=== PATIENT | male | born 1940 | race Caucasian/White ===

== ENCOUNTER 2018-06-27 06:49 | Inpatient (IN) | payer MEDICARE ==
[2018-06-27] VITALS (16 sets, daily range): BP systolic 122–170; BP diastolic 26–127
[~2018-06-27] VITALS: Ht 170.2 cm; Wt 67.0 kg
[~2018-06-27 06:49] MED LIST: HYDR-3965 PO; LOSA25TA96 PO; NITR0.4T51 SL; NOR5T PO; OLAN5TAB3 PO; PRAV40TA65 PO
[2018-06-27 07:21] LABS: BASOPHILS % (AUTO) 0.2 % (0-1); EOSINOPHILS # (AUTO) 0.2 X10'3 (0-0.9); EOSINOPHILS % (AUTO) 2.2 % (0-6); HEMATOCRIT 42.9 % (42.0-52.0); HEMOGLOBIN 14.5 g/dl (14.0-17.9); LYMPHOCYTES % (AUTO) 12.6 % (21-51); MEAN CORPUSCULAR HGB CONC 33.8 % (33.0-36.5); MEAN CORPUSCULAR VOLUME 97.6 FL (78-98); MEAN PLATELET VOLUME 7.1 FL (7.4-10.4); MONOCYTES # (AUTO) 0.6 X10'3 (0-0.9); MONOCYTES % (AUTO) 7.5 % (2-12); NEUTROPHILS # (AUTO) 5.9 X10'3 (1.8-7.7); NEUTROPHILS % (AUTO) 77.5 % (42-75); PLATELET COUNT 278 X10'3 (140-440); RED BLOOD COUNT 4.39 X10'6 (4.70-6.10); RED CELL DISTRIBUTION WIDTH 13.1 % (11.5-14.5); WHITE BLOOD COUNT 7.6 X10'3 (4.5-11.0)
[2018-06-27 07:39] LABS: ALANINE AMINOTRANSFERASE 35 U/L (12-78); ALBUMIN 3.9 G/DL (3.4-5.0); ALBUMIN/GLOBULIN RATIO 1.2 (1.1-1.5); ALKALINE PHOSPHATASE 70 IU/L (46-116); ANION GAP 8 (8-16); ASPARTATE AMINO TRANSFERASE 20 U/L (10-37); BILIRUBIN,TOTAL 0.3 MG/DL (0.1-1.0); BLOOD UREA NITROGEN 23 MG/DL (7-18); BUN/CREATININE RATIO 13.9 (5.4-32.0); CALCIUM 8.9 MG/DL (8.5-10.1); CHLORIDE 104 MMOL/L (99-107); CREATININE 1.66 MG/DL (0.60-1.10); GLUCOSE 108 MG/DL (70-104); POTASSIUM 4.1 MMOL/L (3.5-5.1); SODIUM 138 MMOL/L (135-145); TOTAL CARBON DIOXIDE 26.4 MMOL/L (24-32); TOTAL PROTEIN 7.2 G/DL (6.4-8.2); eGFR 40 ML/MIN
[2018-06-27 07:50] LABS: CLARITY,URINE CLEAR (Clear); COLOR,URINE YELLOW (Yellow); GLUCOSE, URINE NEGATIVE (Neg); KETONES,URINE NEGATIVE (Neg); LEUKOCYTE ESTERASE ,URINE NEGATIVE (Neg); NITRITES, URINE NEGATIVE (Neg); OCCULT BLOOD,URINE SMALL (Neg); PROTEIN,URINE TRACE mg/dl (Neg); UROBILINOGEN,URINE 0.2 E.U/dL (0.2-1.0)
[2018-06-27 07:59] LABS: UA COLLECTION TYPE CLN CATCH MIDSTREAM
[2018-06-27 08:14] LABS: BACTERIA,URINE NONE SEEN /HPF (Neg); RBC,URINE 0-2 /HPF (0-2); SQUAMOUS EPITHELIAL CELL,UR NONE SEEN /LPF (FEW); WBC,URINE 0-4 /HPF (0-4)
[2018-06-27] MEDS ORDERED: magnesium hydroxide 30ml (MOM) UD suspension PO PRN (10:50)
[2018-06-27] MEDS ORDERED: acetaminophen 325mg tablet PO PRN (10:50)
[2018-06-27] MEDS ORDERED: ondansetron/PF 4mg/2ml inj IV PRN ×2 (10:50→16:35)
[2018-06-27] MEDS ORDERED: morphine 2 MG/ML inj. syringe IV PRN ×2 (10:50)
[2018-06-27] MEDS ORDERED: mag hydrox/Alum hydrox/simeth 30ml oral suspension PO PRN (10:50)
[2018-06-27] MEDS: normal saline 1000ml 1,000 ML IV SCH ×2 (12:04→20:49)
[2018-06-27] MEDS ORDERED: famotidine 20mg tablet PO ONE (13:21)
[2018-06-27] MEDS ORDERED: ringers solution, lacted 1,000 ML IV SCH (13:22)
[2018-06-27] MEDS ORDERED: BUPIVAcaine/PF 2.5mg/ml (0.25%) 10ml vial ONE (14:19)
[2018-06-27] MEDS ORDERED: ceFAZolin 1000mg inj ONE (14:19)
[2018-06-27] MEDS ORDERED: amLODIPine 5mg tablet PO ONE (14:25)
[2018-06-27] MEDS ORDERED: sevoflurane 250ml liquid IH ONE (14:51)
[2018-06-27] MEDS ORDERED: midazolam 2 mg/2 ml injection ONE (14:54)
[2018-06-27] MEDS ORDERED: fentaNYL/PF 50MCG/1 ML 2ML syringe ONE (14:54)
[2018-06-27] MEDS ORDERED: clindamycin phosphate 150mg/ml inj. ONE (14:56)
[2018-06-27] MEDS ORDERED: hydrALAZINE 20mg/ml inj. IV PRN (15:00)
[2018-06-27] MEDS ORDERED: ondansetron/PF 4mg/2ml inj ONE (15:58)
[2018-06-27] MEDS ORDERED: rocuronium 10mg/ml inj IV ONE (15:58)
[2018-06-27] MEDS ORDERED: dexamethasone sod phosphate 4mg/ml inj. ONE (15:58)
[2018-06-27] MEDS ORDERED: propofol inj 20 ML IV ONE (15:58)
[2018-06-27] MEDS ORDERED: glycopyrrolate 0.2mg/ml inj ONE (16:09)
[2018-06-27] MEDS ORDERED: neostigmine methylsulfate 1 MG/ML 10ml vial ONE (16:09)
[2018-06-27] MEDS ORDERED: HYDROcodone/acetaminophen 10/325mg tab PO PRN ×2 (16:35)
[2018-06-27] MEDS ORDERED: normal saline 1000ml 1,000 ML IV SCH (16:35)
[2018-06-27] MEDS: heparin, porcine 5000 units/ml vial SQ SCH (20:00)
[2018-06-27] MEDS: oxyCODONE IR 5mg (immed. release) tablet PO PRN (21:46)
[2018-06-28] VITALS: BP 110/54
[2018-06-28] MEDS: normal saline 1000ml 1,000 ML IV SCH ×2 (03:10→13:30)
[2018-06-28] MEDS: oxyCODONE IR 5mg (immed. release) tablet PO PRN ×3 (03:32→15:37)
[2018-06-28 05:40] LABS: BASOPHILS % (AUTO) 0 % (0-1); EOSINOPHILS # (AUTO) 0.3 X10'3 (0-0.9); EOSINOPHILS % (AUTO) 1.5 % (0-6); HEMATOCRIT 39.1 % (42.0-52.0); HEMOGLOBIN 13.2 g/dl (14.0-17.9); LYMPHOCYTES # (AUTO) 0.5 X10'3 (1.1-4.8); LYMPHOCYTES % (AUTO) 3.1 % (21-51); MEAN CORPUSCULAR HEMOGLOBIN 33.1 PG (27.0-31.0); MEAN CORPUSCULAR HGB CONC 33.8 % (33.0-36.5); MEAN CORPUSCULAR VOLUME 98.2 FL (78-98); MONOCYTES # (AUTO) 0.7 X10'3 (0-0.9); MONOCYTES % (AUTO) 3.9 % (2-12); NEUTROPHILS # (AUTO) 15.5 X10'3 (1.8-7.7); NEUTROPHILS % (AUTO) 91.5 % (42-75); PLATELET COUNT 258 X10'3 (140-440); RED BLOOD COUNT 3.98 X10'6 (4.70-6.10); RED CELL DISTRIBUTION WIDTH 13.3 % (11.5-14.5)
[2018-06-28 05:46] LABS: ALBUMIN 3.2 G/DL (3.4-5.0); ANION GAP 9 (8-16); BLOOD UREA NITROGEN 23 MG/DL (7-18); BUN/CREATININE RATIO 15.1 (5.4-32.0); CALCIUM 8.6 MG/DL (8.5-10.1); CHLORIDE 103 MMOL/L (99-107); CREATININE 1.52 MG/DL (0.60-1.10); GLUCOSE 152 MG/DL (70-104); POTASSIUM 4.6 MMOL/L (3.5-5.1); SODIUM 137 MMOL/L (135-145); TOTAL CARBON DIOXIDE 25.4 MMOL/L (24-32); eGFR 44 ML/MIN
[2018-06-28 08:00] VITALS: BP 122/66
[2018-06-28] MEDS ORDERED: pravastatin 40mg tablet PO SCH (08:00)
[2018-06-28] MEDS ORDERED: OLANZapine 2.5MG tablet PO SCH (08:00)
[2018-06-28] MEDS ORDERED: losartan 25mg tablet PO SCH (08:00)
[2018-06-28] MEDS ORDERED: amLODIPine 5mg tablet PO SCH (08:00)
[2018-06-28] MEDS: heparin, porcine 5000 units/ml vial SQ SCH (09:28)
[2018-06-28 11:00] VITALS: BP 126/63
[2018-06-28 14:22] VITALS: BP 122/54
[2018-06-28] MEDS ORDERED: OXYC-658 PO (14:47)
== END 2018-06-28 17:38 | disposition home health service (06) | DRG 352 ==
LOC: ER 06:49 → ED HOLD 10:49 → PAS IN 12:39 → SUR 3N 17:30
PROVIDERS: ADMIT Family Medicine; ATTEND Family Medicine
PROC: 0YU54JZ Supplement Right Inguinal Region with Synthetic Substitute, Percutaneous Endoscopic Approach (ICD-10-PCS; principal; 2018-06-27 14:51)
DX: K40.91 Unilateral inguinal hernia, without obstruction or gangrene, recurrent (principal); Z95.1 Presence of aortocoronary bypass graft; E78.5 Hyperlipidemia, unspecified; I25.10 Atherosclerotic heart disease of native coronary artery without angina pectoris; F32.9 Major depressive disorder, single episode, unspecified; G89.29 Other chronic pain; M19.90 Unspecified osteoarthritis, unspecified site; M54.9 Dorsalgia, unspecified; I10 Essential (primary) hypertension; Z88.1 Allergy status to other antibiotic agents; Z88.0 Allergy status to penicillin; Z88.8 Allergy status to other drugs, medicaments and biological substances; Z85.46 Personal history of malignant neoplasm of prostate; Z86.73 Personal history of transient ischemic attack (TIA), and cerebral infarction without residual deficits
CPT/HCPCS: 36415; 74176; 80048; 80053; 81001; 85025; 87070; 99285; A4315; A6258; C1713; C1781; J0690; J1100; J1644; J2250; J2405; J2704; J2710; J3010; J3490; J7030; J7120

== ENCOUNTER 2018-12-20 00:22 | Inpatient (IN) | payer MEDICARE ==
[~2018-12-20] VITALS: Ht 170.2 cm; Wt 70.0 kg
[~2018-12-20 00:22] MED LIST changes: -HYDR-3965 PO; -NITR0.4T51 SL
[2018-12-20 02:07] LABS: BASOPHILS % (AUTO) 0.3 % (0-1); EOSINOPHILS # (AUTO) 0.2 X10'3 (0-0.9); EOSINOPHILS % (AUTO) 1.4 % (0-6); HEMATOCRIT 42.8 % (42.0-52.0); HEMOGLOBIN 14.2 g/dl (14.0-17.9); LYMPHOCYTES # (AUTO) 1.1 X10'3 (1.1-4.8); LYMPHOCYTES % (AUTO) 8.7 % (21-51); MEAN CORPUSCULAR HEMOGLOBIN 32.6 PG (27.0-31.0); MEAN CORPUSCULAR HGB CONC 33.3 g/dL (33.0-36.5); MEAN PLATELET VOLUME 7.3 FL (7.4-10.4); MONOCYTES # (AUTO) 0.7 X10'3 (0-0.9); MONOCYTES % (AUTO) 5.8 % (2-12); NEUTROPHILS # (AUTO) 10.3 X10'3 (1.8-7.7); NEUTROPHILS % (AUTO) 83.8 % (42-75); PLATELET COUNT 269 X10'3 (140-440); RED BLOOD COUNT 4.36 X10'6 (4.70-6.10); RED CELL DISTRIBUTION WIDTH 13.2 % (11.5-14.5); WHITE BLOOD COUNT 12.3 X10'3 (4.5-11.0)
[2018-12-20 02:17] LABS: PARTIAL THROMBOPLASTIN TIME 30 SECONDS (22-32); PROTHROMBIN TIME 9.9 SECONDS (9.0-12.0)
[2018-12-20 02:26] LABS: ANION GAP 11 (8-16); BLOOD UREA NITROGEN 33 MG/DL (7-18); CHLORIDE 105 MMOL/L (99-107); CREATININE 1.76 MG/DL (0.60-1.10); GLUCOSE 107 MG/DL (70-104); POTASSIUM 4.4 MMOL/L (3.5-5.1); SODIUM 140 MMOL/L (135-145); TOTAL CARBON DIOXIDE 24.4 MMOL/L (24-32)
[2018-12-20 02:27] LABS: ALANINE AMINOTRANSFERASE 42 U/L (12-78); ALBUMIN 4.2 G/DL (3.4-5.0); ALBUMIN/GLOBULIN RATIO 1.1 (1.1-1.5); ALKALINE PHOSPHATASE 83 IU/L (46-116); ASPARTATE AMINO TRANSFERASE 28 U/L (10-37); BILIRUBIN,TOTAL 0.2 MG/DL (0.1-1.0); BUN/CREATININE RATIO 18.8 (5.4-32.0); CALCIUM 9.5 MG/DL (8.5-10.1); eGFR 37 ML/MIN
[2018-12-20 02:32] LABS: MAGNESIUM 2.2 MG/DL (1.5-2.4)
--- NOTE | 2018-12-20 02:50 | NUR ---
neuro tele initiated, placed in room
[2018-12-20 03:21] LABS: CLARITY,URINE CLEAR (Clear); COLOR,URINE YELLOW (Yellow); GLUCOSE, URINE NEGATIVE (Neg); KETONES,URINE NEGATIVE (Neg); LEUKOCYTE ESTERASE ,URINE NEGATIVE (Neg); NITRITES, URINE NEGATIVE (Neg); OCCULT BLOOD,URINE MODERATE (Neg); PH,URINE 5.5 (4.8-8.0); PROTEIN,URINE 100 mg/dl (Neg); UROBILINOGEN,URINE 0.2 E.U/dL (0.2-1.0)
[2018-12-20 03:22] LABS: UA COLLECTION TYPE NON-SPECIFIED
[2018-12-20 03:32] LABS: BACTERIA,URINE FEW /HPF (Neg); RBC,URINE 0-2 /HPF (0-2); SQUAMOUS EPITHELIAL CELL,UR FEW /LPF (FEW); WBC,URINE 0-4 /HPF (0-4)
[2018-12-20] MEDS ORDERED: aspirin 81mg tablet.DR PO ONE (03:45)
[2018-12-20] MEDS ORDERED: magnesium hydroxide 30ml (MOM) UD suspension PO PRN (03:55)
[2018-12-20] MEDS ORDERED: mag hydrox/Alum hydrox/simeth 30ml oral suspension PO PRN (03:55)
[2018-12-20] MEDS ORDERED: morphine 4 MG/ML inj SYRINge IV PRN (03:55)
[2018-12-20] MEDS ORDERED: morphine 2 MG/ML inj. syringe IV PRN (03:55)
[2018-12-20] MEDS ORDERED: normal saline 1000ml 1,000 ML IV SCH (03:55)
[2018-12-20] MEDS ORDERED: ondansetron/PF 4mg/2ml inj IV PRN (03:55)
[2018-12-20] MEDS ORDERED: acetaminophen 325mg tablet PO PRN ×2 (03:55)
[2018-12-20] MEDS ORDERED: dextrose 5%-1/2 normal saline 1,000 ML IV SCH (03:55)
[2018-12-20] MEDS ORDERED: DOCU100C41 PO (04:18)
[2018-12-20] MEDS ORDERED: OXYC-658 PO (04:18)
[2018-12-20] MEDS ORDERED: CHOL100046 PO (04:18)
[2018-12-20 04:31] LABS: HEMOGLOBIN A1C 5.7 % (4.5-6.2)
[2018-12-20 05:40] VITALS: BP 144/75
--- NOTE | 2018-12-20 05:40 | NUR ---
Patient came up to floor via wheelchair. Report received from Renetta GILLETTE. Patient able to transfer into bed. Bed locked and low postion. Call light placed within reach. Non skid socks placed. Vitals taken.
[2018-12-20] MEDS ORDERED: LORazepam 2 mg/ml vial IV PRN (06:05)
--- NOTE | 2018-12-20 06:39 | NUR ---
Problems reprioritized. Patient report given, questions answered & plan of care reviewed with Aleksandar GILLETTE.
[2018-12-20] MEDS: enoxaparin 40mg/0.4ml syringe SUBCUT SCH (07:56)
[2018-12-20] MEDS: OLANZapine 2.5MG tablet PO SCH (07:57)
[2018-12-20] MEDS ORDERED: losartan 25mg tablet PO SCH (08:00)
[2018-12-20] MEDS ORDERED: amLODIPine 5mg tablet PO SCH (08:00)
[2018-12-20] MEDS ORDERED: potassium Cl 20 mEq SR tablet PO PRN ×2 (10:00)
[2018-12-20] MEDS ORDERED: potassium Cl 40MEQ/NS 500ml 500 ML IV PRN ×2 (10:00)
[2018-12-20] MEDS ORDERED: magnesium Cl slow-release 64mg tablet PO PRN (10:00)
[2018-12-20] MEDS ORDERED: magnesium 4gm in 100ml NS 100 ML IV PRN (10:00)
[2018-12-20] MEDS: pravastatin 40mg tablet PO SCH (10:02)
[2018-12-20] MEDS ORDERED: docusate sod 100mg capsule PO ONE (13:05)
[2018-12-20 13:44] LABS: CHOL/HDL RATIO 2.8 (0.00-4.99); CHOLESTEROL 159 MG/DL (0-200); HDL CHOLESTEROL 57 MG/DL (35-60); LDL CHOLESTEROL 95 MG/DL (50-100); TRIGLYCERIDES 66 MG/DL (20-135)
[2018-12-20 14:00] VITALS: BP 137/65
[2018-12-20] MEDS: oxyCODONE IR 5mg (immed. release) tablet PO PRN ×2 (16:02→19:54)
--- NOTE | 2018-12-20 16:34 | NUR ---
PAGER ID: [phone] MESSAGE: [phone] RE: MARIO [id number] JUST A REMINDER FOR THE CODE STATUS AND CAN I STOP THE FLUIDS? DRINKING PLENTY AND UP TO THE BATHROOM FREQUENTLY
[2018-12-20 18:00] VITALS: BP 172/83
--- NOTE | 2018-12-20 18:15 | NUR ---
Problems reprioritized. Patient report given, questions answered & plan of care reviewed with GHAZAL GILLETTE.
--- NOTE | 2018-12-20 18:21 | NUR ---
Patient in room [facility]. I have received report from Aleksandar GILLETTE and had the opportunity to ask questions and assume patient care.
[2018-12-20 22:00] VITALS: BP 127/61
[2018-12-21 02:30] VITALS: BP 156/59
[2018-12-21 06:30] VITALS: BP 147/69
--- NOTE | 2018-12-21 06:38 | NUR ---
Problems reprioritized. Patient report given, questions answered & plan of care reviewed with Shakira GILLETTE.
[2018-12-21 07:55] LABS: BASOPHILS # (AUTO) 0.1 X10'3 (0-0.2); BASOPHILS % (AUTO) 0.6 % (0-1); EOSINOPHILS # (AUTO) 0.2 X10'3 (0-0.9); EOSINOPHILS % (AUTO) 1.9 % (0-6); HEMATOCRIT 42.9 % (42.0-52.0); HEMOGLOBIN 14.7 g/dl (14.0-17.9); LYMPHOCYTES # (AUTO) 1.3 X10'3 (1.1-4.8); LYMPHOCYTES % (AUTO) 14.4 % (21-51); MEAN CORPUSCULAR HEMOGLOBIN 33.6 PG (27.0-31.0); MEAN CORPUSCULAR HGB CONC 34.3 g/dL (33.0-36.5); MEAN CORPUSCULAR VOLUME 98.1 FL (78-98); MEAN PLATELET VOLUME 7.4 FL (7.4-10.4); MONOCYTES # (AUTO) 0.7 X10'3 (0-0.9); MONOCYTES % (AUTO) 7.9 % (2-12); NEUTROPHILS # (AUTO) 6.9 X10'3 (1.8-7.7); NEUTROPHILS % (AUTO) 75.2 % (42-75); PLATELET COUNT 255 X10'3 (140-440); RED BLOOD COUNT 4.37 X10'6 (4.70-6.10); RED CELL DISTRIBUTION WIDTH 13.3 % (11.5-14.5); WHITE BLOOD COUNT 9.2 X10'3 (4.5-11.0)
[2018-12-21] MEDS ORDERED: vitamin D (cholecalciferol) 1,000 unit tablet PO SCH (08:00)
[2018-12-21] MEDS ORDERED: docusate sod 100mg capsule PO SCH (08:00)
[2018-12-21 08:03] LABS: ALANINE AMINOTRANSFERASE 33 U/L (12-78); ALBUMIN/GLOBULIN RATIO 1.1 (1.1-1.5); ALKALINE PHOSPHATASE 80 IU/L (46-116); ANION GAP 11 (8-16); ASPARTATE AMINO TRANSFERASE 22 U/L (10-37); BILIRUBIN,TOTAL 0.5 MG/DL (0.1-1.0); BLOOD UREA NITROGEN 26 MG/DL (7-18); CALCIUM 9.3 MG/DL (8.5-10.1); CHLORIDE 106 MMOL/L (99-107); CHOL/HDL RATIO 2.7 (0.00-4.99); CHOLESTEROL 158 MG/DL (0-200); CREATININE 1.62 MG/DL (0.60-1.10); GLUCOSE 91 MG/DL (70-104); HDL CHOLESTEROL 58 MG/DL (35-60); LDL CHOLESTEROL 93 MG/DL (50-100); MAGNESIUM 2.1 MG/DL (1.5-2.4); PHOSPHORUS 2.4 MG/DL (2.3-4.5); SODIUM 142 MMOL/L (135-145); TOTAL CARBON DIOXIDE 25.1 MMOL/L (24-32); TOTAL PROTEIN 7.7 G/DL (6.4-8.2); TRIGLYCERIDES 77 MG/DL (20-135); eGFR 41 ML/MIN
[2018-12-21] MEDS ORDERED: FLO0.4C PO (09:19)
[2018-12-21 10:00] VITALS: BP 151/84
[2018-12-21] MEDS: enoxaparin 40mg/0.4ml syringe SUBCUT SCH (10:03)
[2018-12-21] MEDS: OLANZapine 2.5MG tablet PO SCH (10:04)
[2018-12-21] MEDS: pravastatin 40mg tablet PO SCH (10:05)
[2018-12-21] MEDS: oxyCODONE IR 5mg (immed. release) tablet PO PRN (10:06)
== END 2018-12-21 11:30 | disposition home or self-care (01) | DRG 69 ==
LOC: ER 00:23 → ED HOLD 03:55 → OBSVTOIN 03:55 → ORTHO 4S 05:32
PROVIDERS: ADMIT Internal Medicine; ATTEND Family Medicine
PROC: BW38YZZ Magnetic Resonance Imaging (MRI) of Head using Other Contrast (ICD-10-PCS; principal; 2018-12-20)
DX: G45.9 Transient cerebral ischemic attack, unspecified (principal); E78.00 Pure hypercholesterolemia, unspecified; E78.5 Hyperlipidemia, unspecified; G89.4 Chronic pain syndrome; I12.9 Hypertensive chronic kidney disease with stage 1 through stage 4 chronic kidney disease, or unspecified chronic kidney disease; I25.10 Atherosclerotic heart disease of native coronary artery without angina pectoris; N18.3 Chronic kidney disease, stage 3 (moderate); R31.29 Other microscopic hematuria; F32.9 Major depressive disorder, single episode, unspecified; M19.90 Unspecified osteoarthritis, unspecified site; M54.9 Dorsalgia, unspecified; R47.1 Dysarthria and anarthria; Z79.899 Other long term (current) drug therapy; Z82.3 Family history of stroke; Z85.46 Personal history of malignant neoplasm of prostate; I25.2 Old myocardial infarction; Z85.47 Personal history of malignant neoplasm of testis; Z90.79 Acquired absence of other genital organ(s); Z95.1 Presence of aortocoronary bypass graft; Z88.1 Allergy status to other antibiotic agents; Z88.0 Allergy status to penicillin; Z88.8 Allergy status to other drugs, medicaments and biological substances
CPT/HCPCS: 36415; 70450; 70544; 70551; 80053; 80061; 81001; 83036; 83735; 84100; 84443; 84484; 85025; 85610; 85730; 87070; 92616; 93005; 93306; 93880; 97116; 97161; 99285; G0378; J1650; J2060; J2270; J7030

== ENCOUNTER 2019-10-01 11:14 | Emergency (ER) | payer MEDICARE ==
[~2019-10-01] VITALS: Ht 170.2 cm; Wt 72.7 kg
[~2019-10-01 11:14] MED LIST changes: +CHOL100046 PO; +DOCU100C41 PO; +OXYC-658 PO
[2019-10-01] MEDS ORDERED: ketorolac trometh inj. 60 MG/2 ML VIAL IM ONE (11:40)
[2019-10-01] MEDS ORDERED: ondansetron 4mg rapidly disintigrating tab PO ONE (11:40)
[2019-10-01] MEDS ORDERED: morphine 4 MG/ML inj SYRINge IM ONE (11:40)
[2019-10-01] MEDS ORDERED: HYDR-3965 PO (13:43)
[2019-10-01 14:17] VITALS: BP 128/63
== END 2019-10-01 14:19 | disposition home or self-care (01) ==
LOC: ER 11:14
DX: S42.291A Other displaced fracture of upper end of right humerus, initial encounter for closed fracture (principal); I25.10 Atherosclerotic heart disease of native coronary artery without angina pectoris; E78.00 Pure hypercholesterolemia, unspecified; I10 Essential (primary) hypertension; M19.90 Unspecified osteoarthritis, unspecified site; G89.29 Other chronic pain; F32.9 Major depressive disorder, single episode, unspecified; I63.81 Other cerebral infarction due to occlusion or stenosis of small artery; Z95.1 Presence of aortocoronary bypass graft; Z98.890 Other specified postprocedural states; Z86.73 Personal history of transient ischemic attack (TIA), and cerebral infarction without residual deficits; Z88.1 Allergy status to other antibiotic agents; Z88.0 Allergy status to penicillin; Z88.8 Allergy status to other drugs, medicaments and biological substances; Z79.899 Other long term (current) drug therapy; W01.0XXA Fall on same level from slipping, tripping and stumbling without subsequent striking against object, initial encounter; Y93.89 Activity, other specified; Y92.89 Other specified places as the place of occurrence of the external cause; Y99.8 Other external cause status
CPT/HCPCS: 70450; 72125; 73030; 96372; 99284; J1885; J2270

== ENCOUNTER 2023-12-02 12:14 | Emergency (ER) | payer MEDICARE ==
[~2023-12-02] VITALS: Ht 170.2 cm; Wt 61.0 kg
[~2023-12-02 12:14] MED LIST changes: +LOSA-415 PO; -LOSA25TA96 PO
[2023-12-02 12:47] VITALS: TEMP 98.2
[2023-12-02] MEDS: oxyCODONE/APAP 5-325mg tablet PO ONE (15:27)
[2023-12-02 17:06] VITALS: BP 111/60; PULSE 96; RESP 18; O2SAT 96
== END 2023-12-02 17:14 | disposition home or self-care (01) ==
LOC: ER 12:15
DX: M54.9 Dorsalgia, unspecified (principal); F03.90 Unspecified dementia, unspecified severity, without behavioral disturbance, psychotic disturbance, mood disturbance, and anxiety; E78.00 Pure hypercholesterolemia, unspecified; I10 Essential (primary) hypertension; M19.90 Unspecified osteoarthritis, unspecified site; Z88.0 Allergy status to penicillin; Z88.1 Allergy status to other antibiotic agents; Z88.8 Allergy status to other drugs, medicaments and biological substances; Z79.899 Other long term (current) drug therapy; W19.XXXA Unspecified fall, initial encounter; Y93.89 Activity, other specified; Y92.89 Other specified places as the place of occurrence of the external cause; Y99.8 Other external cause status
CPT/HCPCS: 70450; 72100; 72125; 72170; 99284

== ENCOUNTER 2023-12-03 18:05 | Inpatient (IN) | payer MEDICARE ==
[~2023-12-03] VITALS: Ht 171.4 cm; Wt 63.0 kg
[2023-12-03 19:30] LABS: BASOPHILS % (AUTO) 0.2 % (0-1); EOSINOPHILS % (AUTO) 0 % (0-6); HEMATOCRIT 39.1 % (42.0-52.0); HEMOGLOBIN 13.2 g/dl (14.0-17.9); LYMPHOCYTES # (AUTO) 0.3 X10'3 (1.1-4.8); LYMPHOCYTES % (AUTO) 1.2 % (21-51); MEAN CORPUSCULAR HEMOGLOBIN 33.9 PG (27.0-31.0); MEAN CORPUSCULAR HGB CONC 33.8 g/dL (33.0-36.5); MEAN CORPUSCULAR VOLUME 100.3 FL (78-98); MEAN PLATELET VOLUME 8.5 FL (7.4-10.4); MONOCYTES # (AUTO) 1.6 X10'3 (0-0.9); NEUTROPHILS # (AUTO) 24.3 X10'3 (1.8-7.7); NEUTROPHILS % (AUTO) 92.6 % (42-75); PLATELET COUNT 231 X10'3 (140-440); RED CELL DISTRIBUTION WIDTH 12.5 % (11.5-14.5)
[2023-12-03 19:37] LABS: ANION GAP 13 (8-16); BILIRUBIN,TOTAL 0.6 MG/DL (0.1-1.0); BLOOD UREA NITROGEN 71 MG/DL (7-18); BUN/CREATININE RATIO 26.8 (10.0-20.0); CALCIUM 9.4 MG/DL (8.5-10.1); CHLORIDE 106 MMOL/L (99-107); CREATININE 2.65 MG/DL (0.60-1.10); GLUCOSE 182 MG/DL (70-104); POTASSIUM 3.7 MMOL/L (3.5-5.1); SODIUM 145 MMOL/L (135-145); TOTAL CARBON DIOXIDE 26.5 MMOL/L (24-32); TOTAL PROTEIN 7.5 G/DL (6.4-8.2); eCRCL 18 ML/MIN; eGFR 23 ML/MIN
[2023-12-03 19:38] LABS: ALANINE AMINOTRANSFERASE 85 U/L (12-78); ALBUMIN 3.3 G/DL (3.4-5.0); ALBUMIN/GLOBULIN RATIO 0.8 (1.1-1.5); ALKALINE PHOSPHATASE 67 IU/L (46-116); ASPARTATE AMINO TRANSFERASE 262 U/L (10-37)
[2023-12-03 19:40] LABS: WHITE BLOOD COUNT 26.3 X10'3 (4.5-11.0)
[2023-12-03 19:50] LABS: PRO BRAIN NATRIURETIC PEPTIDE 3378 PG/ML (0-450)
[2023-12-03] MEDS: normal saline 1000ML IV soln IVB ONE (20:18)
[2023-12-03] MEDS ORDERED: LIDOcaine 2% 10ml TOPICAL JELLY (Urojet) TP ONE (20:40)
[2023-12-03 20:41] LABS: PLATELET ESTIMATE NORMAL; TOTAL CELLS COUNTED 100
[2023-12-03 20:42] LABS: LARGE PLATELETS FEW
[2023-12-03] MEDS: levoFLOXACIN-Levaquin 500mg/D5 100 ML IV ONE (21:17)
[2023-12-03] MEDS: LidoCAINE 2% Topical Jelly 11mL syringe TOP ONE (21:24)
[2023-12-03 21:35] LABS: BILIRUBIN,URINE NEGATIVE (Neg); CLARITY,URINE CLEAR (Clear); COLOR,URINE YELLOW (Yellow); GLUCOSE, URINE NEGATIVE (Neg); KETONES,URINE NEGATIVE (Neg); LEUKOCYTE ESTERASE ,URINE NEGATIVE (Neg); NITRITES, URINE NEGATIVE (Neg); OCCULT BLOOD,URINE MODERATE (Neg); PH,URINE 5.5 (4.8-8.0); PROTEIN,URINE 100 mg/dl (Neg); UROBILINOGEN,URINE 0.2 E.U/dL (0.2-1.0)
[2023-12-03] MEDS: diltiazem 5mg/ml 5ml inj. IV ONE (21:45)
[2023-12-03 21:56] LABS: UA COLLECTION TYPE FOLEY CATH
[2023-12-03 21:57] LABS: FINE GRANULAR CAST 0-3 /LPF (NEGATIVE); SQUAMOUS EPITHELIAL CELL,UR FEW /LPF (FEW)
[2023-12-03 21:59] LABS: BACTERIA,URINE NONE SEEN /HPF (Neg); RBC,URINE 0-2 /HPF (0-2); WBC,URINE NONE SEEN /HPF (0-4)
[2023-12-03 22:00] LABS: AMORPHOUS URATES 1+
[2023-12-03 22:01] LABS: MUCUS STRANDS FEW /LPF (Neg)
[2023-12-03] MEDS ORDERED: magnesium Cl slow-release 64mg tablet PO PRN (22:15)
[2023-12-03] MEDS ORDERED: potassium Cl 20 mEq SR tablet PO PRN (22:15)
[2023-12-03] MEDS ORDERED: magnesium 4gm in 100ml NS 100 ML IV PRN (22:15)
[2023-12-03] MEDS ORDERED: mag hydrox/Alum hydrox/simeth 30ml oral suspension PO PRN (22:15)
[2023-12-03] MEDS ORDERED: magnesium 2GM in 50ml NS 50 ML IV PRN (22:15)
[2023-12-03] MEDS ORDERED: magnesium hydroxide 30ml (MOM) UD suspension PO PRN (22:15)
[2023-12-03] MEDS ORDERED: morphine 2 MG/ML inj. syringe IV PRN (22:15)
[2023-12-03] MEDS ORDERED: HYDROmorphone/PF 0.2 MG/ML SYRINGE IV PRN (22:15)
[2023-12-03] MEDS ORDERED: ondansetron/PF 4mg/2ml inj IV PRN (22:15)
[2023-12-03] MEDS: normal saline 1000ml 1,000 ML IV SCH (22:50)
[2023-12-03] MEDS: heparin, porcine 5000 units/ml vial SQ SCH (22:59)
[2023-12-03 23:58] LABS: CREATINE KINASE 9089 U/L (39-308)
[2023-12-04] MEDS: acetaminophen 325mg tablet PO PRN (00:48)
[2023-12-04 01:53] LABS: ALANINE AMINOTRANSFERASE 86 U/L (12-78); ALBUMIN 2.9 G/DL (3.4-5.0); ALBUMIN/GLOBULIN RATIO 0.8 (1.1-1.5); ANION GAP 13 (8-16); ASPARTATE AMINO TRANSFERASE 245 U/L (10-37); BILIRUBIN,TOTAL 0.5 MG/DL (0.1-1.0); BLOOD UREA NITROGEN 67 MG/DL (7-18); BUN/CREATININE RATIO 29.4 (10.0-20.0); CALCIUM 8.6 MG/DL (8.5-10.1); CHLORIDE 106 MMOL/L (99-107); CREATININE 2.28 MG/DL (0.60-1.10); GLUCOSE 118 MG/DL (70-104); POTASSIUM 3.2 MMOL/L (3.5-5.1); SODIUM 145 MMOL/L (135-145); TOTAL CARBON DIOXIDE 26.2 MMOL/L (24-32); TOTAL PROTEIN 6.7 G/DL (6.4-8.2); eCRCL 21 ML/MIN; eGFR 27 ML/MIN
[2023-12-04 01:54] LABS: ALKALINE PHOSPHATASE 61 IU/L (46-116)
[2023-12-04 02:01] LABS: BASOPHILS % (AUTO) 0.2 % (0-1); EOSINOPHILS % (AUTO) 0 % (0-6); HEMOGLOBIN 12.8 g/dl (14.0-17.9); LYMPHOCYTES # (AUTO) 0.6 X10'3 (1.1-4.8); LYMPHOCYTES % (AUTO) 2.5 % (21-51); MEAN CORPUSCULAR HEMOGLOBIN 33.4 PG (27.0-31.0); MEAN CORPUSCULAR HGB CONC 32.9 g/dL (33.0-36.5); MEAN CORPUSCULAR VOLUME 101.5 FL (78-98); MEAN PLATELET VOLUME 9.2 FL (7.4-10.4); MONOCYTES # (AUTO) 1.8 X10'3 (0-0.9); MONOCYTES % (AUTO) 6.8 % (2-12); NEUTROPHILS # (AUTO) 23.4 X10'3 (1.8-7.7); NEUTROPHILS % (AUTO) 90.5 % (42-75); PLATELET COUNT 212 X10'3 (140-440); RED BLOOD COUNT 3.84 X10'6 (4.70-6.10); RED CELL DISTRIBUTION WIDTH 12.8 % (11.5-14.5)
[2023-12-04 02:13] LABS: WHITE BLOOD COUNT 25.8 X10'3 (4.5-11.0)
[2023-12-04] MEDS: sodium bicarbonate (8.4%) inj. 100 MEQ in dextrose 5%-water 1,000 ML IV SCH (05:09)
[2023-12-04] MEDS: potassium Cl 40MEQ/1/2NS 520ml 520 ML IV PRN (05:36)
[2023-12-04] MEDS: K and/or MAG REPLACEMENT MC SCH (08:00)
[2023-12-04] MEDS ORDERED: docusate sod 100mg capsule PO SCH (08:00)
[2023-12-04] MEDS ORDERED: morphine 2 MG/ML inj. syringe IV PRN (08:45)
[2023-12-04 09:41] LABS: ALANINE AMINOTRANSFERASE 84 U/L (12-78); ALBUMIN 2.7 G/DL (3.4-5.0); ALBUMIN/GLOBULIN RATIO 0.7 (1.1-1.5); ALKALINE PHOSPHATASE 65 IU/L (46-116); ANION GAP 15 (8-16); ASPARTATE AMINO TRANSFERASE 217 U/L (10-37); BILIRUBIN,TOTAL 0.6 MG/DL (0.1-1.0); BLOOD UREA NITROGEN 67 MG/DL (7-18); BUN/CREATININE RATIO 30.9 (10.0-20.0); CALCIUM 8.5 MG/DL (8.5-10.1); CHLORIDE 111 MMOL/L (99-107); CREATININE 2.17 MG/DL (0.60-1.10); GLUCOSE 139 MG/DL (70-104); POTASSIUM 3.5 MMOL/L (3.5-5.1); SODIUM 148 MMOL/L (135-145); TOTAL PROTEIN 6.6 G/DL (6.4-8.2); eCRCL 22 ML/MIN; eGFR 29 ML/MIN
[2023-12-04 10:04] LABS: C-REACTIVE PROTEIN 20.44 MG/DL (0.0-0.5)
[2023-12-04 10:06] LABS: CREATINE KINASE 5007 U/L (39-308)
[2023-12-04 16:35] VITALS: BP 149/68; PULSE 107; RESP 18; TEMP 99.4; O2SAT 92
[2023-12-04 18:00] VITALS: BP 149/68; PULSE 114; RESP 15; TEMP 98; O2SAT 93
[2023-12-04 20:00] VITALS: RESP 14; O2SAT 93
[2023-12-04] MEDS: levoFLOXACIN-Levaquin 500mg/D5 100 ML IV SCH (21:05)
[2023-12-04] MEDS: metroNIDAZOLE-Flagyl 500mg/NS 100 ML IV SCH (21:06)
[2023-12-04 22:00] VITALS: BP 156/71; PULSE 110; RESP 14; TEMP 97.1; O2SAT 93
[2023-12-05] VITALS (15 sets, daily range): BP systolic 134–152; BP diastolic 63–85; PULSE 62–145; RESP 13–31; TEMP 97.4–100; O2SAT 95–98
[2023-12-05] MEDS: diltiazem 30mg tablet PO ONE (01:01)
[2023-12-05] MEDS: diltiazem 5mg/ml 5ml inj. IV STA (01:47)
[2023-12-05 06:28] LABS: BASOPHILS % (AUTO) 0.1 % (0-1); EOSINOPHILS % (AUTO) 0 % (0-6); HEMATOCRIT 35.1 % (42.0-52.0); HEMOGLOBIN 11.9 g/dl (14.0-17.9); LYMPHOCYTES # (AUTO) 0.5 X10'3 (1.1-4.8); LYMPHOCYTES % (AUTO) 2.3 % (21-51); MEAN CORPUSCULAR HGB CONC 33.9 g/dL (33.0-36.5); MEAN CORPUSCULAR VOLUME 100.2 FL (78-98); MEAN PLATELET VOLUME 8.8 FL (7.4-10.4); MONOCYTES # (AUTO) 1.4 X10'3 (0-0.9); MONOCYTES % (AUTO) 5.9 % (2-12); NEUTROPHILS # (AUTO) 21.6 X10'3 (1.8-7.7); NEUTROPHILS % (AUTO) 91.7 % (42-75); PLATELET COUNT 211 X10'3 (140-440); WHITE BLOOD COUNT 23.6 X10'3 (4.5-11.0)
[2023-12-05 06:43] LABS: ALANINE AMINOTRANSFERASE 89 U/L (12-78); ALBUMIN 2.4 G/DL (3.4-5.0); ALBUMIN/GLOBULIN RATIO 0.6 (1.1-1.5); ALKALINE PHOSPHATASE 61 IU/L (46-116); ANION GAP 12 (8-16); ASPARTATE AMINO TRANSFERASE 121 U/L (10-37); BILIRUBIN,TOTAL 0.6 MG/DL (0.1-1.0); BLOOD UREA NITROGEN 62 MG/DL (7-18); BUN/CREATININE RATIO 34.6 (10.0-20.0); CALCIUM 8.4 MG/DL (8.5-10.1); CHLORIDE 114 MMOL/L (99-107); CREATININE 1.79 MG/DL (0.60-1.10); GLUCOSE 123 MG/DL (70-104); POTASSIUM 3.2 MMOL/L (3.5-5.1); SODIUM 150 MMOL/L (135-145); TOTAL CARBON DIOXIDE 24.4 MMOL/L (24-32); TOTAL PROTEIN 6.2 G/DL (6.4-8.2); eCRCL 27 ML/MIN; eGFR 36 ML/MIN
[2023-12-05] MEDS: potassium Cl 20 mEq SR tablet PO PRN (08:49)
[2023-12-05] MEDS: metoprolol tartrate 1mg/ml inj IV ONE (09:00)
[2023-12-05] MEDS ORDERED: diltiazem 30mg tablet PO SCH (10:25)
[2023-12-05] MEDS ORDERED: diltiazem-D5W 125mg/125ml 125 ML IV SCH (11:20)
[2023-12-05] MEDS ORDERED: diltiazem-NS 100mg/100ml 125 ML IV SCH (11:24)
[2023-12-05] MEDS: diltiazem-NS 100mg/100ml 100 ML IV SCH (12:58)
[2023-12-05] MEDS: potassium cl 20mEq in 1/2 NS 1,000 ML IV SCH (16:30)
[2023-12-05 19:20] LABS: BASOPHILS % (AUTO) 0.1 % (0-1); EOSINOPHILS % (AUTO) 0 % (0-6); HEMATOCRIT 35.2 % (42.0-52.0); HEMOGLOBIN 11.6 g/dl (14.0-17.9); LYMPHOCYTES # (AUTO) 0.4 X10'3 (1.1-4.8); LYMPHOCYTES % (AUTO) 1.3 % (21-51); MEAN CORPUSCULAR HEMOGLOBIN 33.2 PG (27.0-31.0); MEAN CORPUSCULAR HGB CONC 33.1 g/dL (33.0-36.5); MEAN CORPUSCULAR VOLUME 100.4 FL (78-98); MEAN PLATELET VOLUME 8.6 FL (7.4-10.4); MONOCYTES # (AUTO) 1.3 X10'3 (0-0.9); MONOCYTES % (AUTO) 4.5 % (2-12); NEUTROPHILS # (AUTO) 26.5 X10'3 (1.8-7.7); NEUTROPHILS % (AUTO) 94.1 % (42-75); PLATELET COUNT 239 X10'3 (140-440); RED BLOOD COUNT 3.51 X10'6 (4.70-6.10); RED CELL DISTRIBUTION WIDTH 12.8 % (11.5-14.5)
[2023-12-05 19:33] LABS: WHITE BLOOD COUNT 28.2 X10'3 (4.5-11.0)
[2023-12-05 20:09] LABS: PLATELET ESTIMATE NORMAL; TOTAL CELLS COUNTED 100
[2023-12-06] VITALS (35 sets, daily range): BP systolic 96–151; BP diastolic 57–91; PULSE 72–125; RESP 16–30; TEMP 97.9–99.6; O2SAT 84–98
[2023-12-06 06:09] LABS: BASOPHILS % (AUTO) 0 % (0-1); EOSINOPHILS % (AUTO) 0 % (0-6); HEMATOCRIT 35.2 % (42.0-52.0); HEMOGLOBIN 11.8 g/dl (14.0-17.9); LYMPHOCYTES # (AUTO) 0.6 X10'3 (1.1-4.8); LYMPHOCYTES % (AUTO) 2.1 % (21-51); MEAN CORPUSCULAR HEMOGLOBIN 33.7 PG (27.0-31.0); MEAN CORPUSCULAR HGB CONC 33.4 g/dL (33.0-36.5); MEAN CORPUSCULAR VOLUME 100.7 FL (78-98); MONOCYTES # (AUTO) 1.3 X10'3 (0-0.9); MONOCYTES % (AUTO) 4.7 % (2-12); NEUTROPHILS # (AUTO) 25.5 X10'3 (1.8-7.7); NEUTROPHILS % (AUTO) 93.2 % (42-75); PLATELET COUNT 252 X10'3 (140-440); RED CELL DISTRIBUTION WIDTH 13.1 % (11.5-14.5)
[2023-12-06 06:22] LABS: WHITE BLOOD COUNT 27.3 X10'3 (4.5-11.0)
[2023-12-06 06:35] LABS: ALANINE AMINOTRANSFERASE 75 U/L (12-78); ALBUMIN 2.2 G/DL (3.4-5.0); ALBUMIN/GLOBULIN RATIO 0.6 (1.1-1.5); ALKALINE PHOSPHATASE 65 IU/L (46-116); ANION GAP 13 (8-16); ASPARTATE AMINO TRANSFERASE 70 U/L (10-37); BILIRUBIN,TOTAL 0.6 MG/DL (0.1-1.0); BLOOD UREA NITROGEN 54 MG/DL (7-18); BUN/CREATININE RATIO 29.8 (10.0-20.0); CHLORIDE 111 MMOL/L (99-107); CREATININE 1.81 MG/DL (0.60-1.10); GLUCOSE 128 MG/DL (70-104); SODIUM 146 MMOL/L (135-145); TOTAL CARBON DIOXIDE 21.7 MMOL/L (24-32); TOTAL PROTEIN 6.1 G/DL (6.4-8.2); eCRCL 27 ML/MIN; eGFR 36 ML/MIN
[2023-12-06 07:00] LABS: PLATELET ESTIMATE NORMAL; TOTAL CELLS COUNTED 100
[2023-12-06 08:49] LABS: ABG BASE EXCESS -1.4 mmol/L (-2.0-2.0); ABG HCO3 19.9 mmol/L (22.0-26.0); ABG OXYGEN SATURATION 92.2 % (94-97); ABG PCO2 (T) 25.8 mmHg (35.0-48.0); ABG PH (T) 7.508 (7.340-7.440); ABG PO2 (T) 59.9 mmHg (75.0-100.0); ALLEN'S TEST POSITIVE; FCOHb 0.1 % (0.0-3.9); FHHb 7.8 % (0.0-5.0); FMetHb 0.3 % (0.0-1.5); FO2Hb 91.8 % (94-97); MODE MASK - NRB; PATIENT TEMPERATURE 37.9; TOTAL HEMOGLOBIN 12.7 G/dl (14.0-17.9)
[2023-12-06] MEDS: furosemide 40mg/4ml inj IV ONE (08:50)
[2023-12-06 10:26] LABS: CREATINE KINASE 837 U/L (39-308)
[2023-12-06] MEDS: atorvastatin 20mg tablet PO SCH (10:39)
[2023-12-06] MEDS: losartan 50mg tablet PO SCH (10:41)
[2023-12-06] MEDS: albuterol 2.5 MG/3 ML nebule NEB SCH (13:19)
[2023-12-06] MEDS: diltiazem-NS 100mg/100ml 100 ML IV SCH (14:50)
[2023-12-07] VITALS (22 sets, daily range): BP systolic 113–136; BP diastolic 54–75; PULSE 74–117; RESP 16–32; TEMP 97.5–98.6; O2SAT 87–97
[2023-12-07 06:25] LABS: BASOPHILS % (AUTO) 0 % (0-1); EOSINOPHILS # (AUTO) 0.1 X10'3 (0-0.9); EOSINOPHILS % (AUTO) 0.6 % (0-6); HEMATOCRIT 31.8 % (42.0-52.0); HEMOGLOBIN 10.8 g/dl (14.0-17.9); LYMPHOCYTES # (AUTO) 0.7 X10'3 (1.1-4.8); LYMPHOCYTES % (AUTO) 2.9 % (21-51); MEAN CORPUSCULAR HGB CONC 33.8 g/dL (33.0-36.5); MEAN CORPUSCULAR VOLUME 100.6 FL (78-98); MEAN PLATELET VOLUME 8.9 FL (7.4-10.4); MONOCYTES % (AUTO) 4.4 % (2-12); NEUTROPHILS # (AUTO) 21.5 X10'3 (1.8-7.7); NEUTROPHILS % (AUTO) 92.1 % (42-75); PLATELET COUNT 260 X10'3 (140-440); RED BLOOD COUNT 3.16 X10'6 (4.70-6.10); RED CELL DISTRIBUTION WIDTH 13.3 % (11.5-14.5); WHITE BLOOD COUNT 23.4 X10'3 (4.5-11.0)
[2023-12-07 06:43] LABS: ALANINE AMINOTRANSFERASE 66 U/L (12-78); ALBUMIN 2.1 G/DL (3.4-5.0); ALBUMIN/GLOBULIN RATIO 0.6 (1.1-1.5); ALKALINE PHOSPHATASE 63 IU/L (46-116); ANION GAP 13 (8-16); ASPARTATE AMINO TRANSFERASE 52 U/L (10-37); BILIRUBIN,TOTAL 0.5 MG/DL (0.1-1.0); BLOOD UREA NITROGEN 57 MG/DL (7-18); BUN/CREATININE RATIO 28.8 (10.0-20.0); C-REACTIVE PROTEIN 15.87 MG/DL (0.0-0.5); CALCIUM 8.6 MG/DL (8.5-10.1); CHLORIDE 113 MMOL/L (99-107); CREATININE 1.98 MG/DL (0.60-1.10); GLUCOSE 131 MG/DL (70-104); POTASSIUM 3.2 MMOL/L (3.5-5.1); SODIUM 147 MMOL/L (135-145); TOTAL CARBON DIOXIDE 20.6 MMOL/L (24-32); TOTAL PROTEIN 5.8 G/DL (6.4-8.2); eCRCL 24 ML/MIN; eGFR 32 ML/MIN
[2023-12-07] MEDS ORDERED: potassium Cl 20 mEq SR tablet PO PRN (08:35)
[2023-12-07] MEDS ORDERED: magnesium 2GM in 50ml NS 50 ML IV PRN (08:35)
[2023-12-07] MEDS ORDERED: magnesium 4gm in 100ml NS 100 ML IV PRN (08:35)
[2023-12-07] MEDS ORDERED: potassium Cl 40MEQ/1/2NS 520ml 520 ML IV PRN (08:35)
[2023-12-07] MEDS ORDERED: magnesium Cl slow-release 64mg tablet PO PRN (08:35)
[2023-12-07] MEDS: levoFLOXACIN-Levaquin 250mg/D5 50 ML IV SCH (08:39)
[2023-12-07] MEDS: potassium Cl 20 mEq SR tablet PO PRN (09:40)
[2023-12-07] MEDS: diltiazem 30mg tablet PO SCH (14:03)
[2023-12-08] VITALS (16 sets, daily range): BP systolic 107–140; BP diastolic 57–77; PULSE 68–114; RESP 16–20; TEMP 97–98.2; O2SAT 95–97
[2023-12-08 07:40] LABS: BASOPHILS # (AUTO) 0.1 X10'3 (0-0.2); BASOPHILS % (AUTO) 0.2 % (0-1); EOSINOPHILS # (AUTO) 0.1 X10'3 (0-0.9); EOSINOPHILS % (AUTO) 0.5 % (0-6); HEMATOCRIT 32.2 % (42.0-52.0); HEMOGLOBIN 10.6 g/dl (14.0-17.9); LYMPHOCYTES # (AUTO) 0.7 X10'3 (1.1-4.8); LYMPHOCYTES % (AUTO) 2.9 % (21-51); MEAN CORPUSCULAR HGB CONC 32.9 g/dL (33.0-36.5); MEAN CORPUSCULAR VOLUME 100.3 FL (78-98); MEAN PLATELET VOLUME 9.2 FL (7.4-10.4); MONOCYTES # (AUTO) 1.2 X10'3 (0-0.9); NEUTROPHILS # (AUTO) 21.2 X10'3 (1.8-7.7); NEUTROPHILS % (AUTO) 91.4 % (42-75); PLATELET COUNT 281 X10'3 (140-440); RED BLOOD COUNT 3.21 X10'6 (4.70-6.10); RED CELL DISTRIBUTION WIDTH 13.5 % (11.5-14.5); WHITE BLOOD COUNT 23.2 X10'3 (4.5-11.0)
[2023-12-08 10:12] LABS: ALANINE AMINOTRANSFERASE 63 U/L (12-78); ALBUMIN 2.1 G/DL (3.4-5.0); ALBUMIN/GLOBULIN RATIO 0.6 (1.1-1.5); ALKALINE PHOSPHATASE 67 IU/L (46-116); ANION GAP 12 (8-16); ASPARTATE AMINO TRANSFERASE 42 U/L (10-37); BILIRUBIN,TOTAL 0.4 MG/DL (0.1-1.0); BLOOD UREA NITROGEN 61 MG/DL (7-18); BUN/CREATININE RATIO 30.8 (10.0-20.0); CALCIUM 8.7 MG/DL (8.5-10.1); CHLORIDE 115 MMOL/L (99-107); CREATININE 1.98 MG/DL (0.60-1.10); GLUCOSE 120 MG/DL (70-104); SODIUM 149 MMOL/L (135-145); TOTAL CARBON DIOXIDE 22.3 MMOL/L (24-32); TOTAL PROTEIN 5.8 G/DL (6.4-8.2); eCRCL 24 ML/MIN; eGFR 32 ML/MIN
[2023-12-08] MEDS: lactose-reduced food (Ensure Enlive) - 237ml bottle PO SCH (18:00)
[2023-12-09] VITALS (17 sets, daily range): BP systolic 120–142; BP diastolic 56–84; PULSE 62–120; RESP 14–24; TEMP 97.4–98.7; O2SAT 89–97
[2023-12-09 11:04] LABS: BASOPHILS % (AUTO) 0.1 % (0-1); EOSINOPHILS # (AUTO) 0.1 X10'3 (0-0.9); EOSINOPHILS % (AUTO) 0.4 % (0-6); HEMATOCRIT 32.9 % (42.0-52.0); HEMOGLOBIN 10.7 g/dl (14.0-17.9); LYMPHOCYTES # (AUTO) 0.9 X10'3 (1.1-4.8); LYMPHOCYTES % (AUTO) 3.7 % (21-51); MEAN CORPUSCULAR HEMOGLOBIN 33.2 PG (27.0-31.0); MEAN CORPUSCULAR HGB CONC 32.5 g/dL (33.0-36.5); MEAN CORPUSCULAR VOLUME 102.2 FL (78-98); MEAN PLATELET VOLUME 8.9 FL (7.4-10.4); MONOCYTES # (AUTO) 1.1 X10'3 (0-0.9); MONOCYTES % (AUTO) 4.5 % (2-12); NEUTROPHILS # (AUTO) 21.9 X10'3 (1.8-7.7); NEUTROPHILS % (AUTO) 91.3 % (42-75); PLATELET COUNT 285 X10'3 (140-440); RED BLOOD COUNT 3.22 X10'6 (4.70-6.10); RED CELL DISTRIBUTION WIDTH 13.8 % (11.5-14.5); WHITE BLOOD COUNT 23.9 X10'3 (4.5-11.0)
[2023-12-09 11:16] LABS: ALANINE AMINOTRANSFERASE 61 U/L (12-78); ALBUMIN 2.2 G/DL (3.4-5.0); ALBUMIN/GLOBULIN RATIO 0.6 (1.1-1.5); ALKALINE PHOSPHATASE 58 IU/L (46-116); ANION GAP 12 (8-16); ASPARTATE AMINO TRANSFERASE 41 U/L (10-37); BILIRUBIN,TOTAL 0.5 MG/DL (0.1-1.0); BLOOD UREA NITROGEN 62 MG/DL (7-18); CALCIUM 8.8 MG/DL (8.5-10.1); CHLORIDE 113 MMOL/L (99-107); GLUCOSE 151 MG/DL (70-104); MAGNESIUM 1.9 MG/DL (1.5-2.4); PHOSPHORUS 3.9 MG/DL (2.3-4.5); POTASSIUM 3.4 MMOL/L (3.5-5.1); SODIUM 150 MMOL/L (135-145); TOTAL CARBON DIOXIDE 25.3 MMOL/L (24-32); TOTAL PROTEIN 5.9 G/DL (6.4-8.2); eCRCL 24 ML/MIN; eGFR 32 ML/MIN
[2023-12-09 11:25] LABS: PLATELET ESTIMATE NORMAL; TOTAL CELLS COUNTED 100
[2023-12-09] MEDS: dextrose 5%-water 1,000 ML IV SCH (12:46)
[2023-12-09 13:34] LABS: APTT 29 SECONDS (22-32); INR 1.2 INR
[2023-12-09 13:37] LABS: PROTHROMBIN TIME 12.6 SECONDS (9.0-12.0)
[2023-12-09] MEDS: diltiazem 30mg tablet PO SCH (17:38)
[2023-12-10] VITALS (15 sets, daily range): BP systolic 110–124; BP diastolic 53–64; PULSE 74–99; RESP 14–22; TEMP 97.3–99.5; O2SAT 91–98
[2023-12-10 07:48] LABS: OCCULT BLOOD STOOL POSITIVE (Neg)
[2023-12-10] MEDS: losartan 25mg tablet PO SCH (07:48)
[2023-12-10 11:57] LABS: BASOPHILS # (AUTO) 0.1 X10'3 (0-0.2); BASOPHILS % (AUTO) 0.3 % (0-1); EOSINOPHILS # (AUTO) 0.2 X10'3 (0-0.9); HEMATOCRIT 28.3 % (42.0-52.0); HEMOGLOBIN 9.3 g/dl (14.0-17.9); LYMPHOCYTES % (AUTO) 4.3 % (21-51); MEAN CORPUSCULAR HEMOGLOBIN 33.1 PG (27.0-31.0); MEAN CORPUSCULAR HGB CONC 32.9 g/dL (33.0-36.5); MEAN CORPUSCULAR VOLUME 100.6 FL (78-98); MEAN PLATELET VOLUME 8.7 FL (7.4-10.4); MONOCYTES # (AUTO) 1.2 X10'3 (0-0.9); MONOCYTES % (AUTO) 5.2 % (2-12); NEUTROPHILS # (AUTO) 20.2 X10'3 (1.8-7.7); NEUTROPHILS % (AUTO) 89.2 % (42-75); PLATELET COUNT 275 X10'3 (140-440); RED BLOOD COUNT 2.81 X10'6 (4.70-6.10); RED CELL DISTRIBUTION WIDTH 13.4 % (11.5-14.5); WHITE BLOOD COUNT 22.7 X10'3 (4.5-11.0)
[2023-12-10 11:58] LABS: ALANINE AMINOTRANSFERASE 52 U/L (12-78); ALBUMIN/GLOBULIN RATIO 0.6 (1.1-1.5); ALKALINE PHOSPHATASE 51 IU/L (46-116); ANION GAP 10 (8-16); ASPARTATE AMINO TRANSFERASE 41 U/L (10-37); BILIRUBIN,TOTAL 0.5 MG/DL (0.1-1.0); BLOOD UREA NITROGEN 52 MG/DL (7-18); BUN/CREATININE RATIO 29.4 (10.0-20.0); CHLORIDE 108 MMOL/L (99-107); CREATININE 1.77 MG/DL (0.60-1.10); GLUCOSE 157 MG/DL (70-104); POTASSIUM 3.4 MMOL/L (3.5-5.1); SODIUM 143 MMOL/L (135-145); TOTAL PROTEIN 5.3 G/DL (6.4-8.2); eCRCL 27 ML/MIN; eGFR 37 ML/MIN
[2023-12-10 12:14] LABS: TOTAL CELLS COUNTED 100
[2023-12-10 12:15] LABS: ELLIPTOCYTES FEW; PLATELET ESTIMATE NORMAL; POLYCHROMASIA FEW; STOMATOCYTES FEW; TEAR DROP CELLS FEW
[2023-12-10] MEDS: HYDROcodone/acetaminophen 5mg/325mg tablet PO PRN (13:54)
[2023-12-10] MEDS: potassium Cl 20 mEq SR tablet PO PRN (21:12)
[2023-12-10] MEDS: pantoprazole 40MG/NS 100ML BAG 100 ML IV SCH (21:27)
[2023-12-11] VITALS (16 sets, daily range): BP systolic 107–147; BP diastolic 53–84; PULSE 20–111; RESP 14–26; TEMP 96.8–99.2; O2SAT 88–95
[2023-12-11 06:50] LABS: BASOPHILS % (AUTO) 0.1 % (0-1); EOSINOPHILS # (AUTO) 0.3 X10'3 (0-0.9); EOSINOPHILS % (AUTO) 1.1 % (0-6); HEMATOCRIT 27.9 % (42.0-52.0); HEMOGLOBIN 9.4 g/dl (14.0-17.9); LYMPHOCYTES % (AUTO) 3.9 % (21-51); MEAN CORPUSCULAR HEMOGLOBIN 33.6 PG (27.0-31.0); MEAN CORPUSCULAR HGB CONC 33.6 g/dL (33.0-36.5); MEAN CORPUSCULAR VOLUME 100.1 FL (78-98); MEAN PLATELET VOLUME 8.6 FL (7.4-10.4); MONOCYTES # (AUTO) 1.4 X10'3 (0-0.9); MONOCYTES % (AUTO) 5.6 % (2-12); NEUTROPHILS # (AUTO) 22.6 X10'3 (1.8-7.7); NEUTROPHILS % (AUTO) 89.3 % (42-75); PLATELET COUNT 254 X10'3 (140-440); RED BLOOD COUNT 2.79 X10'6 (4.70-6.10); RED CELL DISTRIBUTION WIDTH 13.3 % (11.5-14.5)
[2023-12-11 07:13] LABS: WHITE BLOOD COUNT 25.3 X10'3 (4.5-11.0)
[2023-12-11 07:15] LABS: ALANINE AMINOTRANSFERASE 66 U/L (12-78); ALBUMIN/GLOBULIN RATIO 0.6 (1.1-1.5); ALKALINE PHOSPHATASE 53 IU/L (46-116); ANION GAP 10 (8-16); ASPARTATE AMINO TRANSFERASE 121 U/L (10-37); BILIRUBIN,TOTAL 0.5 MG/DL (0.1-1.0); BLOOD UREA NITROGEN 45 MG/DL (7-18); BUN/CREATININE RATIO 24.2 (10.0-20.0); CALCIUM 7.5 MG/DL (8.5-10.1); CHLORIDE 105 MMOL/L (99-107); CREATININE 1.86 MG/DL (0.60-1.10); GLUCOSE 120 MG/DL (70-104); POTASSIUM 3.6 MMOL/L (3.5-5.1); SODIUM 139 MMOL/L (135-145); TOTAL CARBON DIOXIDE 23.8 MMOL/L (24-32); TOTAL PROTEIN 5.3 G/DL (6.4-8.2); eCRCL 26 ML/MIN; eGFR 35 ML/MIN
[2023-12-11 08:37] LABS: PLATELET ESTIMATE NORMAL; TOTAL CELLS COUNTED 100
[2023-12-11 08:38] LABS: ACANTHOCYTES FEW; ELLIPTOCYTES FEW; TEAR DROP CELLS FEW
[2023-12-12] VITALS (15 sets, daily range): BP systolic 103–133; BP diastolic 52–85; PULSE 77–92; RESP 12–33; TEMP 96.8–98.1; O2SAT 90–97
[2023-12-12 05:49] LABS: BASOPHILS % (AUTO) 0.1 % (0-1); EOSINOPHILS # (AUTO) 0.4 X10'3 (0-0.9); EOSINOPHILS % (AUTO) 1.5 % (0-6); HEMATOCRIT 30.1 % (42.0-52.0); HEMOGLOBIN 9.9 g/dl (14.0-17.9); LYMPHOCYTES % (AUTO) 3.9 % (21-51); MEAN CORPUSCULAR HGB CONC 32.9 g/dL (33.0-36.5); MEAN CORPUSCULAR VOLUME 100.4 FL (78-98); MEAN PLATELET VOLUME 8.4 FL (7.4-10.4); MONOCYTES # (AUTO) 1.1 X10'3 (0-0.9); MONOCYTES % (AUTO) 4.1 % (2-12); NEUTROPHILS # (AUTO) 23.9 X10'3 (1.8-7.7); NEUTROPHILS % (AUTO) 90.4 % (42-75); PLATELET COUNT 296 X10'3 (140-440); RED CELL DISTRIBUTION WIDTH 13.3 % (11.5-14.5)
[2023-12-12 05:54] LABS: WHITE BLOOD COUNT 26.4 X10'3 (4.5-11.0)
[2023-12-12 06:03] LABS: ALANINE AMINOTRANSFERASE 55 U/L (12-78); ALBUMIN 1.8 G/DL (3.4-5.0); ALBUMIN/GLOBULIN RATIO 0.5 (1.1-1.5); ALKALINE PHOSPHATASE 54 IU/L (46-116); ANION GAP 10 (8-16); ASPARTATE AMINO TRANSFERASE 72 U/L (10-37); BILIRUBIN,TOTAL 0.5 MG/DL (0.1-1.0); BLOOD UREA NITROGEN 39 MG/DL (7-18); BUN/CREATININE RATIO 21.9 (10.0-20.0); CALCIUM 7.8 MG/DL (8.5-10.1); CHLORIDE 105 MMOL/L (99-107); CREATININE 1.78 MG/DL (0.60-1.10); GLUCOSE 141 MG/DL (70-104); POTASSIUM 3.6 MMOL/L (3.5-5.1); SODIUM 138 MMOL/L (135-145); TOTAL CARBON DIOXIDE 23.4 MMOL/L (24-32); TOTAL PROTEIN 5.4 G/DL (6.4-8.2); eCRCL 27 ML/MIN; eGFR 37 ML/MIN
[2023-12-12 06:27] LABS: PLATELET ESTIMATE NORMAL; TOTAL CELLS COUNTED 100
[2023-12-12 06:28] LABS: ANISOCYTOSIS 1+; ELLIPTOCYTES FEW
[2023-12-13] VITALS (16 sets, daily range): BP systolic 91–142; BP diastolic 44–58; PULSE 71–88; RESP 16–36; TEMP 96–98.2; O2SAT 92–97
[2023-12-13 05:56] LABS: BASOPHILS # (AUTO) 0.1 X10'3 (0-0.2); BASOPHILS % (AUTO) 0.4 % (0-1); EOSINOPHILS # (AUTO) 0.5 X10'3 (0-0.9); EOSINOPHILS % (AUTO) 2.4 % (0-6); HEMATOCRIT 28.8 % (42.0-52.0); HEMOGLOBIN 9.5 g/dl (14.0-17.9); LYMPHOCYTES # (AUTO) 0.7 X10'3 (1.1-4.8); LYMPHOCYTES % (AUTO) 3.4 % (21-51); MEAN CORPUSCULAR HEMOGLOBIN 33.3 PG (27.0-31.0); MEAN CORPUSCULAR VOLUME 100.7 FL (78-98); MEAN PLATELET VOLUME 8.8 FL (7.4-10.4); MONOCYTES # (AUTO) 1.1 X10'3 (0-0.9); NEUTROPHILS # (AUTO) 19.6 X10'3 (1.8-7.7); NEUTROPHILS % (AUTO) 88.8 % (42-75); PLATELET COUNT 278 X10'3 (140-440); RED BLOOD COUNT 2.86 X10'6 (4.70-6.10); RED CELL DISTRIBUTION WIDTH 13.1 % (11.5-14.5); WHITE BLOOD COUNT 22.1 X10'3 (4.5-11.0)
[2023-12-13 06:00] LABS: ALANINE AMINOTRANSFERASE 48 U/L (12-78); ALBUMIN 1.7 G/DL (3.4-5.0); ALBUMIN/GLOBULIN RATIO 0.5 (1.1-1.5); ALKALINE PHOSPHATASE 53 IU/L (46-116); ANION GAP 8 (8-16); ASPARTATE AMINO TRANSFERASE 50 U/L (10-37); BILIRUBIN,TOTAL 0.3 MG/DL (0.1-1.0); BLOOD UREA NITROGEN 35 MG/DL (7-18); CALCIUM 7.7 MG/DL (8.5-10.1); CHLORIDE 104 MMOL/L (99-107); CREATININE 1.75 MG/DL (0.60-1.10); GLUCOSE 136 MG/DL (70-104); POTASSIUM 3.4 MMOL/L (3.5-5.1); SODIUM 136 MMOL/L (135-145); TOTAL CARBON DIOXIDE 23.6 MMOL/L (24-32); TOTAL PROTEIN 5.3 G/DL (6.4-8.2); eCRCL 28 ML/MIN; eGFR 37 ML/MIN
[2023-12-13 08:16] LABS: PLATELET ESTIMATE NORMAL; TOTAL CELLS COUNTED 100
[2023-12-13 08:17] LABS: BURR CELLS FEW; ELLIPTOCYTES FEW
[2023-12-13] MEDS: albumin (human) 25% 100 ML IV solution IV ONE (19:21)
[2023-12-14] VITALS (15 sets, daily range): BP systolic 89–112; BP diastolic 51–60; PULSE 66–88; RESP 12–24; TEMP 97–98.8; O2SAT 94–99
[2023-12-14 09:40] LABS: ALANINE AMINOTRANSFERASE 42 U/L (12-78); ALBUMIN 2.8 G/DL (3.4-5.0); ALBUMIN/GLOBULIN RATIO 0.9 (1.1-1.5); ALKALINE PHOSPHATASE 42 IU/L (46-116); ANION GAP 10 (8-16); ASPARTATE AMINO TRANSFERASE 46 U/L (10-37); BILIRUBIN,TOTAL 0.5 MG/DL (0.1-1.0); BLOOD UREA NITROGEN 35 MG/DL (7-18); BUN/CREATININE RATIO 20.2 (10.0-20.0); CALCIUM 8.1 MG/DL (8.5-10.1); CHLORIDE 105 MMOL/L (99-107); CREATININE 1.73 MG/DL (0.60-1.10); GLUCOSE 90 MG/DL (70-104); POTASSIUM 4.1 MMOL/L (3.5-5.1); SODIUM 138 MMOL/L (135-145); TOTAL CARBON DIOXIDE 22.9 MMOL/L (24-32); TOTAL PROTEIN 5.9 G/DL (6.4-8.2); eCRCL 28 ML/MIN; eGFR 38 ML/MIN
[2023-12-15] VITALS (16 sets, daily range): BP systolic 116–138; BP diastolic 46–62; PULSE 73–94; RESP 10–21; TEMP 97.1–98.8; O2SAT 93–96
[2023-12-15 11:07] LABS: BASOPHILS % (AUTO) 0.1 % (0-1); EOSINOPHILS # (AUTO) 0.6 X10'3 (0-0.9); EOSINOPHILS % (AUTO) 3.5 % (0-6); HEMATOCRIT 26.9 % (42.0-52.0); HEMOGLOBIN 8.7 g/dl (14.0-17.9); LYMPHOCYTES # (AUTO) 0.9 X10'3 (1.1-4.8); LYMPHOCYTES % (AUTO) 4.9 % (21-51); MEAN CORPUSCULAR HEMOGLOBIN 32.8 PG (27.0-31.0); MEAN CORPUSCULAR HGB CONC 32.4 g/dL (33.0-36.5); MEAN CORPUSCULAR VOLUME 101.5 FL (78-98); MEAN PLATELET VOLUME 8.1 FL (7.4-10.4); MONOCYTES # (AUTO) 0.8 X10'3 (0-0.9); MONOCYTES % (AUTO) 4.6 % (2-12); NEUTROPHILS # (AUTO) 15.2 X10'3 (1.8-7.7); NEUTROPHILS % (AUTO) 86.9 % (42-75); PLATELET COUNT 329 X10'3 (140-440); RED BLOOD COUNT 2.65 X10'6 (4.70-6.10); RED CELL DISTRIBUTION WIDTH 13.4 % (11.5-14.5); WHITE BLOOD COUNT 17.5 X10'3 (4.5-11.0)
[2023-12-15 11:36] LABS: ALANINE AMINOTRANSFERASE 46 U/L (12-78); ALBUMIN 2.5 G/DL (3.4-5.0); ALBUMIN/GLOBULIN RATIO 0.8 (1.1-1.5); ALKALINE PHOSPHATASE 44 IU/L (46-116); ANION GAP 9 (8-16); ASPARTATE AMINO TRANSFERASE 41 U/L (10-37); BILIRUBIN,TOTAL 0.4 MG/DL (0.1-1.0); BLOOD UREA NITROGEN 30 MG/DL (7-18); BUN/CREATININE RATIO 16.7 (10.0-20.0); CALCIUM 8.3 MG/DL (8.5-10.1); CHLORIDE 105 MMOL/L (99-107); GLUCOSE 114 MG/DL (70-104); POTASSIUM 4.5 MMOL/L (3.5-5.1); SODIUM 140 MMOL/L (135-145); TOTAL CARBON DIOXIDE 26.4 MMOL/L (24-32); TOTAL PROTEIN 5.8 G/DL (6.4-8.2); eCRCL 27 ML/MIN; eGFR 36 ML/MIN
[2023-12-15 11:52] LABS: PLATELET ESTIMATE NORMAL; TOTAL CELLS COUNTED 100
[2023-12-15 11:53] LABS: BURR CELLS FEW; ELLIPTOCYTES FEW; POLYCHROMASIA 1+
[2023-12-15] MEDS ORDERED: ondansetron 4mg rapidly disintigrating tab PO PRN (17:45)
[2023-12-16] VITALS (16 sets, daily range): BP systolic 114–133; BP diastolic 52–68; PULSE 80–88; RESP 13–24; TEMP 97.3–98.7; O2SAT 90–96
[2023-12-16 07:23] LABS: BASOPHILS # (AUTO) 0.1 X10'3 (0-0.2); BASOPHILS % (AUTO) 0.6 % (0-1); EOSINOPHILS # (AUTO) 0.4 X10'3 (0-0.9); EOSINOPHILS % (AUTO) 2.6 % (0-6); HEMATOCRIT 25.8 % (42.0-52.0); HEMOGLOBIN 8.4 g/dl (14.0-17.9); LYMPHOCYTES # (AUTO) 0.6 X10'3 (1.1-4.8); LYMPHOCYTES % (AUTO) 4.2 % (21-51); MEAN CORPUSCULAR HEMOGLOBIN 32.8 PG (27.0-31.0); MEAN CORPUSCULAR HGB CONC 32.5 g/dL (33.0-36.5); MEAN PLATELET VOLUME 8.2 FL (7.4-10.4); MONOCYTES # (AUTO) 0.8 X10'3 (0-0.9); MONOCYTES % (AUTO) 5.6 % (2-12); NEUTROPHILS # (AUTO) 12.5 X10'3 (1.8-7.7); PLATELET COUNT 345 X10'3 (140-440); RED BLOOD COUNT 2.55 X10'6 (4.70-6.10); RED CELL DISTRIBUTION WIDTH 13.5 % (11.5-14.5); WHITE BLOOD COUNT 14.4 X10'3 (4.5-11.0)
[2023-12-16 07:39] LABS: ALANINE AMINOTRANSFERASE 45 U/L (12-78); ALBUMIN 2.3 G/DL (3.4-5.0); ALBUMIN/GLOBULIN RATIO 0.7 (1.1-1.5); ALKALINE PHOSPHATASE 54 IU/L (46-116); ANION GAP 6 (8-16); ASPARTATE AMINO TRANSFERASE 45 U/L (10-37); BILIRUBIN,TOTAL 0.4 MG/DL (0.1-1.0); BLOOD UREA NITROGEN 25 MG/DL (7-18); BUN/CREATININE RATIO 15.3 (10.0-20.0); CALCIUM 8.2 MG/DL (8.5-10.1); CHLORIDE 105 MMOL/L (99-107); CREATININE 1.63 MG/DL (0.60-1.10); GLUCOSE 116 MG/DL (70-104); SODIUM 140 MMOL/L (135-145); TOTAL CARBON DIOXIDE 29.5 MMOL/L (24-32); TOTAL PROTEIN 5.5 G/DL (6.4-8.2); eCRCL 30 ML/MIN; eGFR 40 ML/MIN
[2023-12-16] MEDS: pantoprazole 40mg Tablet.DR PO SCH (08:22)
[2023-12-16] MEDS: levoFLOXACIN 250mg tablet PO SCH (11:45)
[2023-12-17] VITALS (17 sets, daily range): BP systolic 114–139; BP diastolic 49–66; PULSE 69–94; RESP 12–24; TEMP 97.1–98.3; O2SAT 91–96
[2023-12-17 07:41] LABS: BASOPHILS % (AUTO) 0.1 % (0-1); EOSINOPHILS # (AUTO) 0.4 X10'3 (0-0.9); HEMATOCRIT 24.7 % (42.0-52.0); HEMOGLOBIN 8.3 g/dl (14.0-17.9); LYMPHOCYTES # (AUTO) 0.8 X10'3 (1.1-4.8); LYMPHOCYTES % (AUTO) 5.7 % (21-51); MEAN CORPUSCULAR HEMOGLOBIN 33.9 PG (27.0-31.0); MEAN CORPUSCULAR HGB CONC 33.5 g/dL (33.0-36.5); MEAN PLATELET VOLUME 7.6 FL (7.4-10.4); MONOCYTES # (AUTO) 0.9 X10'3 (0-0.9); MONOCYTES % (AUTO) 6.1 % (2-12); NEUTROPHILS # (AUTO) 12.5 X10'3 (1.8-7.7); NEUTROPHILS % (AUTO) 85.1 % (42-75); PLATELET COUNT 341 X10'3 (140-440); RED BLOOD COUNT 2.45 X10'6 (4.70-6.10); RED CELL DISTRIBUTION WIDTH 13.4 % (11.5-14.5); WHITE BLOOD COUNT 14.7 X10'3 (4.5-11.0)
[2023-12-17 08:10] LABS: ALANINE AMINOTRANSFERASE 54 U/L (12-78); ALBUMIN 2.3 G/DL (3.4-5.0); ALBUMIN/GLOBULIN RATIO 0.7 (1.1-1.5); ALKALINE PHOSPHATASE 53 IU/L (46-116); ANION GAP 7 (8-16); ASPARTATE AMINO TRANSFERASE 53 U/L (10-37); BILIRUBIN,TOTAL 0.4 MG/DL (0.1-1.0); BLOOD UREA NITROGEN 26 MG/DL (7-18); BUN/CREATININE RATIO 16.8 (10.0-20.0); CALCIUM 8.6 MG/DL (8.5-10.1); CHLORIDE 106 MMOL/L (99-107); CREATININE 1.55 MG/DL (0.60-1.10); GLUCOSE 99 MG/DL (70-104); SODIUM 142 MMOL/L (135-145); TOTAL CARBON DIOXIDE 28.9 MMOL/L (24-32); TOTAL PROTEIN 5.6 G/DL (6.4-8.2); eCRCL 31 ML/MIN; eGFR 43 ML/MIN
[2023-12-17] MEDS: albuterol 2.5 MG/3 ML nebule NEB SCH (20:55)
[2023-12-18] VITALS (10 sets, daily range): BP systolic 111–130; BP diastolic 55–70; PULSE 69–96; RESP 13–22; TEMP 97.2–98.4; O2SAT 85–99
[2023-12-18 06:42] LABS: BASOPHILS % (AUTO) 0.2 % (0-1); EOSINOPHILS # (AUTO) 0.5 X10'3 (0-0.9); EOSINOPHILS % (AUTO) 2.8 % (0-6); HEMATOCRIT 26.5 % (42.0-52.0); LYMPHOCYTES % (AUTO) 6.4 % (21-51); MEAN CORPUSCULAR HEMOGLOBIN 34.4 PG (27.0-31.0); MEAN CORPUSCULAR HGB CONC 33.9 g/dL (33.0-36.5); MEAN CORPUSCULAR VOLUME 101.4 FL (78-98); MEAN PLATELET VOLUME 7.1 FL (7.4-10.4); MONOCYTES % (AUTO) 5.8 % (2-12); NEUTROPHILS # (AUTO) 13.8 X10'3 (1.8-7.7); NEUTROPHILS % (AUTO) 84.8 % (42-75); PLATELET COUNT 372 X10'3 (140-440); RED BLOOD COUNT 2.61 X10'6 (4.70-6.10); RED CELL DISTRIBUTION WIDTH 13.6 % (11.5-14.5); WHITE BLOOD COUNT 16.3 X10'3 (4.5-11.0)
[2023-12-18 07:03] LABS: ALANINE AMINOTRANSFERASE 59 U/L (12-78); ALBUMIN 2.5 G/DL (3.4-5.0); ALBUMIN/GLOBULIN RATIO 0.7 (1.1-1.5); ALKALINE PHOSPHATASE 55 IU/L (46-116); ANION GAP 6 (8-16); ASPARTATE AMINO TRANSFERASE 45 U/L (10-37); BILIRUBIN,TOTAL 0.4 MG/DL (0.1-1.0); BLOOD UREA NITROGEN 25 MG/DL (7-18); BUN/CREATININE RATIO 14.6 (10.0-20.0); CHLORIDE 105 MMOL/L (99-107); CREATININE 1.71 MG/DL (0.60-1.10); GLUCOSE 110 MG/DL (70-104); POTASSIUM 4.3 MMOL/L (3.5-5.1); SODIUM 141 MMOL/L (135-145); TOTAL CARBON DIOXIDE 29.7 MMOL/L (24-32); TOTAL PROTEIN 6.2 G/DL (6.4-8.2); eCRCL 28 ML/MIN; eGFR 38 ML/MIN
[2023-12-18] MEDS ORDERED: DILT30TA2 PO (11:23)
[2023-12-18] MEDS ORDERED: LOSA25TA41 PO (11:23)
== END 2023-12-18 15:55 | DRG 963 ==
LOC: ER 18:06 → ED HOLD 22:24 → ORTHO 4S 12-04 15:37 → PCU 3S 12-05 12:30
PROVIDERS: ADMIT Internal Medicine; ATTEND Internal Medicine
PROC: 0W9930Z Drainage of Right Pleural Cavity with Drainage Device, Percutaneous Approach (ICD-10-PCS; principal; 2023-12-06)
DX: T79.6XXA Traumatic ischemia of muscle, initial encounter (principal); J18.9 Pneumonia, unspecified organism; S27.0XXA Traumatic pneumothorax, initial encounter; J96.00 Acute respiratory failure, unspecified whether with hypoxia or hypercapnia; N17.0 Acute kidney failure with tubular necrosis; E87.0 Hyperosmolality and hypernatremia; I48.20 Chronic atrial fibrillation, unspecified; J98.11 Atelectasis; Z66 Do not resuscitate; I25.10 Atherosclerotic heart disease of native coronary artery without angina pectoris; E78.00 Pure hypercholesterolemia, unspecified; G30.1 Alzheimer's disease with late onset; F02.C0 Dementia in other diseases classified elsewhere, severe, without behavioral disturbance, psychotic disturbance, mood disturbance, and anxiety; I12.9 Hypertensive chronic kidney disease with stage 1 through stage 4 chronic kidney disease, or unspecified chronic kidney disease; R55 Syncope and collapse; S49.91XA Unspecified injury of right shoulder and upper arm, initial encounter; N18.9 Chronic kidney disease, unspecified; G89.29 Other chronic pain; D53.9 Nutritional anemia, unspecified; J43.9 Emphysema, unspecified; F32.A Depression, unspecified; W18.39XA Other fall on same level, initial encounter; E87.6 Hypokalemia; Y93.89 Activity, other specified; Y92.098 Other place in other non-institutional residence as the place of occurrence of the external cause; Y99.8 Other external cause status; Z85.47 Personal history of malignant neoplasm of testis; Z86.73 Personal history of transient ischemic attack (TIA), and cerebral infarction without residual deficits; Z95.1 Presence of aortocoronary bypass graft; Z88.1 Allergy status to other antibiotic agents; Z79.01 Long term (current) use of anticoagulants; Z88.8 Allergy status to other drugs, medicaments and biological substances; Z79.899 Other long term (current) drug therapy
CPT/HCPCS: 32557; 36415; 36600; 70450; 71045; 71250; 72100; 72125; 72170; 73030; 76770; 77012; 80053; 81001; 82272; 82550; 82803; 83605; 83735; 83880; 84100; 84145; 84484; 85007; 85018; 85025; 85610; 85651; 85730; 86140; 87040; 87081; 92508; 92616; 93005; 93306; 94640; 94760; 96361; 96365; 96375; 97110; 97161; 97530; 99284; 99285; A4421; A4615; A4620; A5200; A6212; A6213; A6222; A6250; A6258; A6449; C1729; C1758; C1769; C9113; G0378; J1644; J1956; J3480; J3490; J7030; J7040; J7070; P9047